=== PATIENT | male | born 1975 | race Caucasian/White ===

== ENCOUNTER 2016-06-11 10:40 | Emergency (ER) | payer SELFPAY ==
[~2016-06-11] VITALS: Ht 162.6 cm; Wt 75.5 kg
[~2016-06-11 10:40] MED LIST: FLUT9.9S NASAL; LORA-186 PO; PSEU120T11 PO
[2016-06-11 10:46] VITALS: Ht 162.6 cm; Wt 75.5 kg
[2016-06-11] MEDS ORDERED: AMOX1TAB10 PO (11:32)
[2016-06-11] MEDS ORDERED: NPH10OT RIGHT EAR (11:32)
--- NOTE | 2016-06-11 14:15 | ERD ---
DATE OF SERVICE: 06/11/2016 HISTORY OF PRESENT ILLNESS: The patient is a 41-year-old male coming in complaining of right ear pa in for the last few weeks. Patient states he has had no purulence from his ear. He is not taking m edications. He has mild nasal congestion, no fevers, no headaches, no vomiting. No vision changes or dizziness. PAST MEDICAL HISTORY: Denies any other medical problems. ALLERGIES: ____ SURGICAL HISTORY: Denies. SOCIAL HISTORY: Denies. REVIEW OF SYSTEMS: A 12-point review of systems was done. Refer to HPI for positives, all other sy stems negative. PHYSICAL EXAMINATION VITAL SIGNS: Temperature is 98.9, pulse is 102, blood pressure is 111/65, respiratory 18, O2 satura tion 97% on room air. Pain intensity is 0/10. GENERAL: The patient is well-appearing, well-nourished, no acute distress. HEENT: There is erythema and some Phalen's signs in the right ear behind the TM. There is no perfor ation. There is questionable erythema noted to the external ear canal. No mastoid tenderness. No foreign body. CHEST: Clear to auscultation bilaterally. There are no rales, wheezes or rhonchi. HEART: Regular rate and rhythm. No murmurs, clicks, rubs or gallops. No S3 or S4. ABDOMEN: Soft, nontender and nondistended. Good bowel sounds. No rebound or guarding. No gross aldair tonitis. No gross organomegaly or masses. No Collins sign or McBurney point tenderness. SKIN: There is no apparent rash or petechia. The skin is warm and dry. DIAGNOSIS: Otitis externa. MEDICAL DECISION MAKING: Patient will have concerning signs for possible otitis media as well. I w ill treat with antibiotics. I have low suspicion for mastoiditis as patient does not have tendernes s to the mastoids and vital signs are stable. I have low suspicion for neuro deficit or intracrania l hemorrhage or mass effect. Low suspicion for neuro deficit, low suspicion for meningitis or sepsi s. DISCHARGE: The patient is discharged stable. Patient is given a prescription for Cortisporin and A ugmentin and told to follow up with primary care within 1 to 2 days for reevaluation. The patient w as told if symptoms progress or worsen to return to the ER. All other questions answered at time of discharge. Discharge summary given at the time of departure. Patient understood and complied with plan. Dictated By: MELINDA LYN for DONY LOPEZ/JENNIFER Conf#: [id number] DID#: [id number]
== END 2016-06-11 12:09 | disposition home or self-care (01) ==
LOC: FTE 10:40
DX: H60.91 Unspecified otitis externa, right ear (principal)
CPT/HCPCS: 99283

== ENCOUNTER 2016-06-17 13:32 | Emergency (ER) | payer MEDICAID ==
[~2016-06-17] VITALS: Ht 182.9 cm; Wt 77.0 kg
[~2016-06-17 13:32] MED LIST changes: +AMOX1TAB10 PO; +NPH10OT RIGHT EAR
[2016-06-17 13:50] VITALS: Ht 182.9 cm; Wt 77.0 kg
[2016-06-17] MEDS ORDERED: IBUP-1542 PO (15:02)
[2016-06-17] MEDS ORDERED: AMOX1TAB10 PO (15:02)
[2016-06-17] MEDS ORDERED: ALBU18HF INHALATION (15:04)
--- NOTE | 2016-06-17 15:43 | ERD ---
ER Documentation Chief Complaint Date/Time DATE: 06/17/16 TIME: 15:33 Chief Complaint medication refill HPI This patient is a 41-year-old undomiciled male presenting to the emergency department for right ear discharge which he states has been ongoing for 6 months. He additionally reports bilateral eye itching and congestion consistent with his seasonal allergies. He states his mother and father both had asthma, and he sometimes feels he has wheezing and difficulty taking a deep breath. He denies Chest pain, SOB, wheezing, and all other sxs currently. There are no other alleviating or exacerbating factors at this time. ROS All systems reviewed and are negative except as per history of present illness. Medications Home Meds Active Scripts Albuterol Sulfate* (Ventolin HFA*) 18 Gm Hfa.aer.ad, 2 PUFF INHALATION Q6H for COUGH, #1 INHALER Prov:AMMON ROQUE PA-C 06/17/16 Ibuprofen* (Motrin*) 600 Mg Tab, 600 MG PO Q6, #20 TAB Prov:AMMON ROQUE PA-C 06/17/16 Amoxicillin/Potassium Clav (Amox-Clav 875-125 mg Tablet) 875-125 mg Tab, 1 TAB PO BID for 10 Days, #20 TAB Prov:AMMON ROQUE PA-C 06/17/16 Amoxicillin/Potassium Clav (Amox-Clav 875-125 mg Tablet) 875-125 mg Tab, 1 TAB PO BID for 7 Days, #14 TAB Prov:LAISHA COE PA-C 06/11/16 Neomycin/Polymyxin/Hydrocort* (Cortisporin* Otic) 10 Ml Susp, 4 DROP RIGHT EAR QID for 7 Days, EA Prov:LAISHA COE PA-C 06/11/16 Pseudoephedrine Hcl (Sudafe 12-Hour) 120 Mg Tablet.er, 120 MG PO DAILY Y for CONGESTION, #14 TAB.SA Prov:KELSIE NELSON PA-C 03/20/16 Fluticasone Propionate (Flonase Allergy Relief) 9.9 Ml [place].susp, 1 SPRAY NASAL BID, #1 BOTTLE TO EACH NOSTRIL Prov:KELSIE NELSON PA-C 03/20/16 Loratadine* (Claritin*) 10 Mg Tablet, 10 MG PO DAILY, #30 TAB Prov:KELSIE NELSON Ilan STALEY 03/20/16 Allergies Allergies: Coded Allergies: No Known Allergy (Unverified , 06/17/16) PMhx/Soc non contributory for chief complaint. Medical and Surgical Hx: pt denies Medical Hx, pt denies Surgical Hx Hx Alcohol Use: No Hx Substance Use: No Hx Tobacco Use: No Physical Exam Vitals Vital Signs Date Time Temp Pulse Resp B/P Pulse Ox O2 Delivery O2 Flow Rate FiO2 06/17/16 13:50 98.2 100 20 105/56 98 Physical Exam Const: The patient is resting comfortably in no acute distress. Head: Atraumatic Eyes: Normal Conjunctiva ENT: The right tympanic membrane appears markedly erythematous and slightly edematous. The left tympanic membrane appears normal Neck: Full range of motion. No meningismus. Resp: Shallow inspiratory effort. The lungs are clear to auscultation bilaterally without wheezes, rales, or rhonchi. Cardio: Regular rate and rhythm, no murmurs Abd: Soft, non tender, non distended. Normal bowel sounds Skin: No petechiae or rashes Back: No midline or flank tenderness Ext: No cyanosis, or edema Neur: Awake and alert Psych: Normal Mood and Affect Procedures/MDM 41-year-old male presenting to the emergency department for right ear discharge which has been ongoing for about 6 months, but worsening recently. Additionally , the patient complains of cough and shallow inspiratory effort. On physical examination vital signs are within normal limits, but the right tympanic membrane appears markedly erythematous and slightly edematous. The primary diagnosis at this time is otitis media without mastoiditis or perforation. Secondary diagnosis is cough. I feel confident that the patient is a candidate for outpatient treatment at this time. Given his status of being homeless currently, it was reiterated that the patient must take all of his medications as directed and finish his full course of antibiotics for resolve of his otitis media. He will be given a prescription for an inhaler to use as needed for his shallow inspiratory effort. I feel confident at this time that there are no signs of pulmonary embolism, asthma exacerbation, or other cardiopulmonary abnormality given the history and physical examination. The patient understands these instructions and he agrees with the plan to discharge. Patient was given community clinic information so that he may find a primary care physician. The patient's questions and concerns were addressed and he agrees with plan to discharge. Departure Diagnosis: Primary Impression: Cough Additional Impression: Otitis media Condition: Stable Patient Instructions: Cough, Chronic, Uncertain Cause, (Adult), Otitis Media, Abx Tx (Adult) Referrals: COMMUNITY CLINICS YOU HAVE RECEIVED A MEDICAL SCREENING EXAM AND THE RESULTS INDICATE THAT YOU DO NOT HAVE A CONDITION THAT REQUIRES URGENT TREATMENT IN THE EMERGENCY DEPARTMENT. FURTHER EVALUATION AND TREATMENT OF YOUR CONDITION CAN WAIT UNTIL YOU ARE SEEN IN YOUR DOCTORS OFFICE WITHIN THE NEXT 1-2 DAYS. IT IS YOUR RESPONSIBILITY TO MAKE AN APPOINTMENT FOR FOLOW-UP CARE. IF YOU HAVE A PRIMARY DOCTOR --you should call your primary doctor and schedule an appointment IF YOU DO NOT HAVE A PRIMARY DOCTOR YOU CAN CALL OUR PHYSICIAN REFERRAL HOTLINE AT IF YOU CAN NOT AFFORD TO SEE A PHYSICIAN YOU CAN CHOSE FROM THE FOLLOWING [facility] [address] [place] [facility] [address] [facility] [facility] [address] [facility] [address]. [facility] [address] [facility]. [facility]. [address] Additional Instructions: FOLLOW UP WITH YOUR PRIMARY CARE PHYSICIAN TOMORROW.Return to this facility if you are not improving as expected. Take all medicines as directed. AMMON ROQUE PA-C Jun 17, 2016 15:42
== END 2016-06-17 15:42 | disposition home or self-care (01) ==
LOC: FTE 13:32
DX: R05 Cough (principal); H66.91 Otitis media, unspecified, right ear
CPT/HCPCS: 99283

== ENCOUNTER 2016-08-14 11:25 | Emergency (ER) | payer MEDICAID, OTHER ==
[~2016-08-14] VITALS: Wt 74.0 kg
[~2016-08-14 11:25] MED LIST changes: +ALBU18HF INHALATION; +IBUP-1542 PO
[2016-08-14] MEDS ORDERED: HYDROCODONE/APAP (5/325) TAB PO ONE (16:30)
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
[2016-08-14] MEDS ORDERED: TRAM50TA2 PO (18:53)
[2016-08-14] MEDS ORDERED: ACET500C5 PO (18:54)
[2016-08-14] MEDS ORDERED: AMOX1TAB10 PO (18:54)
[2016-08-14 19:47] VITALS: BP 114/60; PULSE 86; RESP 18; TEMP 98.1
[2016-08-14] MEDS ORDERED: IBUPROFEN 800 MG TAB PO ONE (20:00)
== END 2016-08-14 20:11 | disposition home or self-care (01) ==
LOC: FTE 11:25
DX: S02.40DA Maxillary fracture, left side, initial encounter for closed fracture (principal); R51 Headache; Y08.89XA Assault by other specified means, initial encounter
CPT/HCPCS: 70450; 70486; Z7502; Z7610

== ENCOUNTER 2016-12-23 13:41 | Emergency (ER) | payer OTHER ==
[~2016-12-23] VITALS: Wt 72.0 kg
[~2016-12-23 13:41] MED LIST changes: +ACET500C5 PO; +TRAM50TA2 PO
[2016-12-23] MEDS ORDERED: METHYLPREDNISOLONE 125 MG INJ IM STA (13:47)
[2016-12-23] MEDS ORDERED: DIPHENHYDRAMINE 50 MG INJ IM STA (13:47)
[2016-12-23] MEDS ORDERED: FAMOTIDINE 20 MG TAB PO STA (13:47)
[2016-12-23] MEDS ORDERED: QUET50TA16 PO (14:24)
[2016-12-23] MEDS ORDERED: HYDR-842 PO (14:24)
--- NOTE | 2016-12-23 14:27 | ERD ---
ER Documentation Chief Complaint Date/Time DATE: 12/23/16 TIME: 14:25 Chief Complaint RASH TO HANDS AND FEELS LIKE PRICKLING. NO REDNESS HPI This is a 38-year-old male who states that for a long time he has felt like little hair like bugs are getting in between his fingernails and skin and digging their way into his finger. He says that his research this on the computer and it is a real thing. He says that they are some small white bugs in his fingertips as well. The patient cuts his fingernails very short to prevent them from being able to get in. He is not suicidal or homicidal is very pleasant. He states that he has had this for years. No finger swelling no redness no lesions ROS All systems reviewed and are negative except as per history of present illness. Medications Home Meds Active Scripts Quetiapine Fumarate* (Seroquel*) 50 Mg Tablet, 50 MG PO HS, #10 TAB Prov:BESSIE MACIAS DO 12/23/16 Hydroxyzine Hcl* (Atarax*) 25 Mg Tab, 25 MG PO Q6H Y for ITCHING, #20 TAB Prov:BESSIE MACIAS DO 12/23/16 Amoxicillin/Potassium Clav (Amox-Clav 875-125 mg Tablet) 875-125 mg Tab, 1 TAB PO BID for 7 Days, #14 TAB Prov:LINO HILTON PA-C 08/14/16 Acetaminophen* (Tylophen*) 500 Mg Capsule, 1 CAP PO Q6H Y for PAIN AND OR ELEVATED TEMP, #30 CAP Prov:LINO HILTON PA-C 08/14/16 Tramadol HCl (Tramadol HCl) 50 Mg Tablet, 50 MG PO Q4 Y for PAIN, #20 TAB Prov:LINO HILTON PA-C 08/14/16 Albuterol Sulfate* (Ventolin HFA*) 18 Gm Hfa.aer.ad, 2 PUFF INHALATION Q6H for COUGH, #1 INHALER Prov:AMMON ROQUE PA-C 06/17/16 Ibuprofen* (Motrin*) 600 Mg Tab, 600 MG PO Q6, #20 TAB Prov:AMMON ROQUE PA-C 06/17/16 Amoxicillin/Potassium Clav (Amox-Clav 875-125 mg Tablet) 875-125 mg Tab, 1 TAB PO BID for 10 Days, #20 TAB Prov:AMMON ROQUE PA-C 06/17/16 Amoxicillin/Potassium Clav (Amox-Clav 875-125 mg Tablet) 875-125 mg Tab, 1 TAB PO BID for 7 Days, #14 TAB Prov:LAISHA COE PA-C 06/11/16 Neomycin/Polymyxin/Hydrocort* (Cortisporin* Otic) 10 Ml Susp, 4 DROP RIGHT EAR QID for 7 Days, EA Prov:LAISHA COE PA-C 06/11/16 Pseudoephedrine Hcl (Sudafe 12-Hour) 120 Mg Tablet.er, 120 MG PO DAILY Y for CONGESTION, #14 TAB.SA Prov:KELSIE NELSON PA-C 03/20/16 Fluticasone Propionate (Flonase Allergy Relief) 9.9 Ml [place].susp, 1 SPRAY NASAL BID, #1 BOTTLE TO EACH NOSTRIL Prov:KELSIE NELSON PA-C 03/20/16 Loratadine* (Claritin*) 10 Mg Tablet, 10 MG PO DAILY, #30 TAB Prov:KELSIE NELSON PA-C 03/20/16 Allergies Allergies: Coded Allergies: No Known Allergy (Unverified , 12/23/16) PMhx/Soc Medical and Surgical Hx: pt denies Medical Hx, pt denies Surgical Hx Hx Alcohol Use: No Hx Substance Use: No Hx Tobacco Use: No Smoking Status: Never smoker FmHx Family History: No coronary disease Physical Exam Vitals Vital Signs Date Time Temp Pulse Resp B/P Pulse Ox O2 Delivery O2 Flow Rate FiO2 12/23/16 13:45 98.6 95 20 115/66 98 Physical Exam Const: Well-developed, well-nourished Head: Atraumatic, normocephalic Eyes: Normal Conjunctiva, PERRLA, EOMI, normal sclera, no nystagmus ENT: Normal External Ears, Nose and Mouth, moist mucus membranes. Neck: Full range of motion. No meningismus, no lymphadenopathy. Resp: Clear to auscultation bilaterally, no wheezing, rhonchi, rales Cardio: Regular rate and rhythm, no murmurs, S1 S2 present Abd: Soft, non tender x 4, non distended. Normal bowel sounds, no guarding or rebound, no pulsitile abdominal masses or bruits Skin: No petechiae or rashes, no ecchymosis , no maculopapular rash Back: No midline or flank tenderness Ext: No cyanosis, or edema, FROM x 4, normal inspection, neurovascularly intact x 4 Neur: Awake and alert, STR 5/5 x 4, sensation intact x 4, no focal findings, cerebellum intact Psych: Normal Mood and Affect, pleasant not suicidal or homicidal Results 24 hrs Current Medications Medications (Trade) Dose Ordered Sig/Rosalie Route PRN Reason Start Time Stop Time Status Last Admin Dose Admin Diphenhydramine HCl (Benadryl) 25 mg ONCE STAT IM 12/23/16 13:47 12/23/16 13:50 DC Famotidine (Pepcid) 20 mg ONCE STAT PO 12/23/16 13:47 12/23/16 13:50 DC Methylprednisolone Sodium Succinate (Solu-Medrol) 125 mg ONCE STAT IM 12/23/16 13:47 12/23/16 13:49 DC Procedures/MDM There are no fingernail or fingertip lesions seen. Patient likely has a little bit of psychosis. Will cover him with Atarax and Seroquel trial Departure Diagnosis: Primary Impression: Psychosis Psychosis type: unspecified psychosis type Qualified Code: F29 - Psychosis, unspecified psychosis type Condition: Stable Patient Instructions: Allergic Reaction, Insect (General) BESSIE MACIAS DO Dec 23, 2016 14:27
== END 2016-12-23 14:35 | disposition home or self-care (01) ==
LOC: FTE 13:41
DX: F29 Unspecified psychosis not due to a substance or known physiological condition (principal)
CPT/HCPCS: 99284; J1200; J2930

== ENCOUNTER 2017-07-29 15:58 | Emergency (ER) | END 2017-07-29 17:04 | disposition home or self-care (01) ==